=== PATIENT | male | born 1935 | race Caucasian/White ===

== ENCOUNTER 2017-08-25 19:08 | Emergency (ER) | payer OTHER ==
[~2017-08-25] VITALS: Ht 165.1 cm; Wt 72.9 kg
[~2017-08-25 19:08] MED LIST: AMLO10TA2 PO; ASPI-515 PO; CHOL100011 PO; CLOP75TA52 PO; LEVO100T5 PO; METO50TA82 PO; OMEP40CA6 PO; SIMV40TA3 PO
[2017-08-25] MEDS ORDERED: HYDROcodone/APAP 5/325 TABLET PO STA (20:00)
[2017-08-25] MEDS ORDERED: HYDROcodone/APAP 5/325 TABLET ONE (20:08)
[2017-08-25 20:29] VITALS: BP 168/86
== END 2017-08-25 20:31 | disposition home or self-care (01) ==
LOC: ED 20:15
DX: K08.89 Other specified disorders of teeth and supporting structures (principal); I10 Essential (primary) hypertension; Z87.891 Personal history of nicotine dependence
CPT/HCPCS: 99283

== ENCOUNTER → 2018-02-25 | Outpatient (CLI) | payer OTHER ==
[~2018-02-25] MED LIST changes: -AMLO10TA2 PO; +AMLO10TA6 PO; +REGADENOSON 0.4 MG/5 ML SYRINGE ONE
== END | disposition home or self-care (01) ==
LOC: CFH 08:12
PROVIDERS: ATTEND Internal Medicine Cardiovascular Disease
DX: Z01.810 Encounter for preprocedural cardiovascular examination (principal); I65.23 Occlusion and stenosis of bilateral carotid arteries; I25.9 Chronic ischemic heart disease, unspecified; I25.2 Old myocardial infarction; I10 Essential (primary) hypertension; Z95.1 Presence of aortocoronary bypass graft
CPT/HCPCS: 78452; 93017; 93880; A9502; J2785

== ENCOUNTER 2018-03-17 12:16 | Day surgery (SDC) | payer OTHER ==
[2018-03-14 09:22] VITALS: BP 164/84
[~2018-03-17] VITALS: Ht 162.6 cm; Wt 68.2 kg
[~2018-03-17 12:16] MED LIST changes: -AMLO10TA6 PO; +AMLO10TA8 PO; +ATOR40TA78 PO; +LEVO25TA4 PO; -REGADENOSON 0.4 MG/5 ML SYRINGE ONE
[2018-03-17] MEDS ORDERED: CLOPIDOGREL 75 MG TABLET PO ONE (12:30)
[2018-03-17] MEDS ORDERED: SODIUM CHLORIDE 0.9% 1,000 ML IV ONE (12:30)
[2018-03-17] MEDS ORDERED: ASPIRIN 325 MG TABLET EC PO ONE (12:30)
[2018-03-17] MEDS ORDERED: BIVALIRUDIN 250 MG ONE (14:08)
[2018-03-17] MEDS ORDERED: HEPARIN 1,000 UNITS/ML, 10ML ONE (14:08)
[2018-03-17] MEDS ORDERED: FENTANYL PF 100 MCG/2ML ONE (14:08)
[2018-03-17] MEDS ORDERED: MIDAZOLAM 1 MG/ML, 5ML ONE (14:08)
[2018-03-17] MEDS ORDERED: VERAPAMIL 2.5 MG/ML, 2ML ONE (14:08)
[2018-03-17] MEDS ORDERED: LIDOCAINE 2%, 20ML ONE (14:08)
[2018-03-17] MEDS ORDERED: SODIUM CHLORIDE 0.9% 1,000 ML IV SCH (16:44)
== END 2018-03-17 17:32 | disposition home or self-care (01) ==
LOC: CACL 12:16
PROVIDERS: ATTEND Internal Medicine Cardiovascular Disease
DX: I25.10 Atherosclerotic heart disease of native coronary artery without angina pectoris (principal); I65.29 Occlusion and stenosis of unspecified carotid artery; E78.2 Mixed hyperlipidemia; I10 Essential (primary) hypertension; I70.218 Atherosclerosis of native arteries of extremities with intermittent claudication, other extremity; F17.211 Nicotine dependence, cigarettes, in remission; Z88.0 Allergy status to penicillin; Z79.82 Long term (current) use of aspirin
CPT/HCPCS: 93459; 99156; 99157; C1760; C1769; C1894; J2250; J3010; J3490; Q9967; J0583; J1644

== ENCOUNTER 2018-09-04 06:01 | Inpatient (IN) | payer MEDICARE ==
[~2018-09-04] VITALS: Ht 162.6 cm; Wt 70.1 kg
[2018-09-07 06:54] VITALS: BP 139/67
== END 2018-09-07 12:44 | disposition home or self-care (01) | DRG 291 ==
LOC: ED 08:05 → EDIP 10:08 → 4EST 16:23 → DCLOUNGE 09-07 12:30
PROVIDERS: ADMIT Internal Medicine Infectious Disease; ATTEND Internal Medicine Infectious Disease
DX: I11.0 Hypertensive heart disease with heart failure (principal); J96.01 Acute respiratory failure with hypoxia; E87.0 Hyperosmolality and hypernatremia; I25.10 Atherosclerotic heart disease of native coronary artery without angina pectoris; E87.6 Hypokalemia; E78.5 Hyperlipidemia, unspecified; E03.9 Hypothyroidism, unspecified; E78.00 Pure hypercholesterolemia, unspecified; I44.7 Left bundle-branch block, unspecified; I73.9 Peripheral vascular disease, unspecified; J98.01 Acute bronchospasm; Z87.891 Personal history of nicotine dependence; Z88.0 Allergy status to penicillin; Z95.1 Presence of aortocoronary bypass graft; Z95.5 Presence of coronary angioplasty implant and graft; Z95.820 Peripheral vascular angioplasty status with implants and grafts; I50.23 Acute on chronic systolic (congestive) heart failure
CPT/HCPCS: 36415; 71045; 80048; 80061; 82040; 83735; 83880; 84100; 84439; 84443; 84484; 85025; 85610; 85730; 93005; 93306; 94640; 96374; 96375; G0378; J1650; J1940; J3475; J7613; J7620; J2930; J3480

== ENCOUNTER → 2018-12-30 | Outpatient (CLI) | payer MEDICARE ==
[~2018-12-30] MED LIST changes: +CARV6.2512 PO; +FURO40TA6 PO; +LISI-167 PO; +LISI-170 PO; +OMEP40CA42 PO; -OMEP40CA6 PO; +POTA10CA PO; +POTA20TA6 PO; +SPIR25TA5 PO
== END | disposition home or self-care (01) ==
LOC: CFH 09:34
PROVIDERS: ATTEND Internal Medicine Cardiovascular Disease
DX: I35.8 Other nonrheumatic aortic valve disorders (principal); I25.5 Ischemic cardiomyopathy; I10 Essential (primary) hypertension; Z87.891 Personal history of nicotine dependence
CPT/HCPCS: 93308; 93321; 93325

== ENCOUNTER → 2020-04-22 | Outpatient (CLI) | payer MEDICARE ==
[~2020-04-22] MED LIST changes: +AMLO-211 PO; -AMLO10TA8 PO; -ASPI-515 PO; +ASPI-963 PO; +SIMV40TA20 PO; -SIMV40TA3 PO
== END | disposition home or self-care (01) ==
LOC: CFH 14:46
PROVIDERS: ATTEND Internal Medicine Cardiovascular Disease
DX: I08.0 Rheumatic disorders of both mitral and aortic valves (principal); I11.9 Hypertensive heart disease without heart failure; I25.10 Atherosclerotic heart disease of native coronary artery without angina pectoris
CPT/HCPCS: 93306

== ENCOUNTER 2020-07-24 19:02 | Inpatient (IN) | payer MEDICARE ==
[~2020-07-24] VITALS: Ht 167.6 cm; Wt 64.6 kg
[~2020-07-24 19:02] MED LIST changes: -OMEP40CA42 PO; +OMEP40CA8 PO
--- NOTE | 2020-07-24 19:05 | NUR ---
JUVENAL from home for stroke-like symptoms. Per family, patient was at the dining table and slumped over at the table. Last seen normal at approx 1815. Upon EMS arrival, patient was AAOx4 but en route became non-verbal. EMS reports slurred speech, left side facial droop, and right side weakness. No hx of CVA. Patient alert on arrival. Patient to CT.
--- NOTE | 2020-07-24 19:05 | NUR ---
BS per EMS 118
[2020-07-24 19:14] LABS: BASOPHILS % (AUTO) 1 % (0-1); EOSINOPHILS % (AUTO) 5 % (1-7); LYMPHOCYTES % (AUTO) 24 % (22-44); MEAN CORPUSCULAR HEMOGLOBIN 30.6 pg (27.5-34.5); MEAN CORPUSCULAR HGB CONC 33.9 g/dL (33.2-36.2); MEAN PLATELET VOLUME 9.2 fL (7.4-10.4); MONOCYTES % (AUTO) 7 % (2-9); NEUTROPHILS % (AUTO) 63 % (42-75); PLATELET COUNT 203 x10^3/uL (130-400); RED BLOOD COUNT 4.05 x10^6/uL (4.38-5.82); RED CELL DISTRIBUTION WIDTH 14.6 % (9.4-14.8)
--- NOTE | 2020-07-24 19:22 | NUR ---
Code Neuro called @ 1850 Called Neurology @ 1902 Neurology called back @ [address] Pappas.
[2020-07-24] MEDS ORDERED: OMNIPAQUE 350 MG/ML, 100ML BOTTLE ONE (19:23)
[2020-07-24 19:29] LABS: INTERNATIONAL NORMALIZED RATIO 1.09 (0.93-1.1); PROTHROMBIN TIME 11.6 Seconds (9.6-11.5)
--- NOTE | 2020-07-24 19:30 | NUR ---
Patient's symptoms improving. AAOx4, CS 15. No facial droop noted. Speech improved. Mild right low ext weakness. Family at bedside.
[2020-07-24 19:35] LABS: PARTIAL THROMBOPLASTIN TIME < 23 Seconds (25-31)
[2020-07-24] MEDS ORDERED: SODIUM CHLORIDE 0.9%, 500ML IVBOLUS ONE (20:00)
[2020-07-24 20:56] VITALS: BP_SYST 122; BP_SYST 90; BP_DIAS 52; BP_DIAS 67
[2020-07-24] MEDS ORDERED: ATORVASTATIN 40 MG TABLET PO SCH (21:00)
[2020-07-24] MEDS ORDERED: SENNA/DOCUSATE TABLET PO PRN (21:00)
[2020-07-24] MEDS ORDERED: SODIUM CHLORIDE 0.9% 1,000 ML IV SCH (21:00)
[2020-07-24] MEDS ORDERED: ACETAMINOPHEN 650 MG/20.3 ML UDC PO PRN (21:00)
[2020-07-24] MEDS ORDERED: POLYETHYLENE GLYCOL 17 GM PACKET PO PRN (21:00)
[2020-07-24] MEDS ORDERED: BISACODYL 10 MG SUPP PR PRN (21:00)
[2020-07-24 21:51] VITALS: BP_SYST 129; BP_SYST 94; BP_DIAS 58; BP_DIAS 69
[2020-07-24] MEDS: CHOLECALCIFEROL 1,000 UNIT TABLET PO SCH (22:24)
[2020-07-24] MEDS ORDERED: ASPIRIN 325 MG TABLET PO ONE (22:30)
[2020-07-25] VITALS (11 sets, daily range): BP systolic 88–186; BP diastolic 52–79
[2020-07-25] MEDS: ONDANSETRON 4 MG TABLET PO PRN ×3 (00:16→17:51)
[2020-07-25] MEDS ORDERED: PROMETHAZINE 25 MG/ML, 1ML IM ONE (01:00)
[2020-07-25] MEDS ORDERED: MAALOX/HYOSCYAMINE/LIDOCAINE 45 ML BTL PO ONE (01:00)
[2020-07-25] MEDS ORDERED: MORPHINE SULFATE 4 MG/ML, 1ML IVPush PRN (05:00)
[2020-07-25 05:12] LABS: BASOPHILS % (AUTO) 1 % (0-1); EOSINOPHILS % (AUTO) 2 % (1-7); LYMPHOCYTES % (AUTO) 13 % (22-44); MEAN CORPUSCULAR HEMOGLOBIN 30.5 pg (27.5-34.5); MEAN CORPUSCULAR HGB CONC 34.1 g/dL (33.2-36.2); MEAN PLATELET VOLUME 8.8 fL (7.4-10.4); MONOCYTES % (AUTO) 7 % (2-9); NEUTROPHILS % (AUTO) 78 % (42-75); PLATELET COUNT 211 x10^3/uL (130-400); RED BLOOD COUNT 4.09 x10^6/uL (4.38-5.82); RED CELL DISTRIBUTION WIDTH 14.4 % (9.4-14.8)
[2020-07-25 05:22] LABS: TROPONIN I 0.332 ng/mL (0.000-0.045)
[2020-07-25 05:29] LABS: ALBUMIN 3.2 g/dL (3.4-5.0); ANION GAP 5 mmol/L (5-15); CALCIUM 8.2 mg/dL (8.5-10.1); CHLORIDE 107 mmol/L (98-107)
[2020-07-25 05:34] LABS: ALANINE AMINOTRANSFERASE 23 U/L (12-78); ALKALINE PHOSPHATASE 121 U/L (45-117); BILIRUBIN,TOTAL 0.2 mg/dL (0.2-1.0); CHOL/HDL RATIO 2.1; CHOLESTEROL, TOTAL 120 mg/dL (140-239); CREATININE 1.45 mg/dL (0.7-1.3); HDL CHOL % 48 % (26-37); HDL CHOLESTEROL (DIRECT) 58 mg/dL (40-60); LDL CHOLESTEROL,CALCULATED 46 mg/dL (54-169); LDL/HDL RATIO 0.8 (0.5-3.0); TOTAL PROTEIN 6.1 g/dL (6.4-8.2); TRIGLYCERIDES 79 mg/dL (50-200); VLDL CHOLESTEROL 16 mg/dL (0-25)
[2020-07-25] MEDS ORDERED: MORPHINE SULFATE 4 MG/ML, 1ML IVPush ONE (06:30)
[2020-07-25] MEDS: CARVEDILOL 6.25 MG TABLET PO SCH ×2 (06:33→17:49)
[2020-07-25] MEDS: LEVOTHYROXINE 25 MCG TABLET PO SCH (06:33)
[2020-07-25] MEDS ORDERED: HEPARIN 5,000 UNITS/ML, 1ML IV ONE (07:00)
[2020-07-25] MEDS ORDERED: HEPARIN 5,000 UNITS/ML, 1ML IV PRN (07:00)
[2020-07-25] MEDS ORDERED: HEPARIN 25,000 UNITS/250ML PMX 250 ML IV PRN (07:00)
[2020-07-25] MEDS ORDERED: ASPIRIN 81 MG TABLET EC PO SCH (09:00)
[2020-07-25] MEDS: OMEPRAZOLE 20 MG CAPSULE.DR PO SCH (09:10)
[2020-07-25] MEDS: ASPIRIN 325 MG TABLET PO SCH (09:10)
[2020-07-25] MEDS: CHOLECALCIFEROL 1,000 UNIT TABLET PO SCH ×2 (09:10→20:43)
[2020-07-25] MEDS: CLOPIDOGREL 75 MG TABLET PO SCH (09:11)
[2020-07-25] MEDS: FUROSEMIDE 20 MG TABLET PO SCH ×2 (09:11→17:49)
[2020-07-25] MEDS: POTASSIUM CHLORIDE 10 MEQ TABLET.ER PO SCH (09:12)
[2020-07-25 11:43] LABS: TROPONIN I 0.458 ng/mL (0.000-0.045)
[2020-07-25] MEDS ORDERED: GADOTERATE 7.5 MMOL/15ML SYR ONE (12:35)
[2020-07-25 16:25] LABS: TROPONIN I 0.302 ng/mL (0.000-0.045)
[2020-07-25] MEDS: ATORVASTATIN 80 MG TABLET PO SCH (20:43)
[2020-07-26 01:27] VITALS: BP 113/66
[2020-07-26 05:27] LABS: TROPONIN I 0.115 ng/mL (0.000-0.045)
[2020-07-26] MEDS: CARVEDILOL 6.25 MG TABLET PO SCH ×2 (05:49→18:04)
[2020-07-26] MEDS: LEVOTHYROXINE 25 MCG TABLET PO SCH (05:49)
[2020-07-26 07:00] VITALS: BP 105/57
[2020-07-26 09:23] VITALS: BP 112/48
[2020-07-26 09:24] LABS: BASOPHILS % (AUTO) 1 % (0-1); EOSINOPHILS % (AUTO) 2 % (1-7); LYMPHOCYTES % (AUTO) 16 % (22-44); MEAN PLATELET VOLUME 8.8 fL (7.4-10.4); MONOCYTES % (AUTO) 7 % (2-9); NEUTROPHILS % (AUTO) 74 % (42-75); PLATELET COUNT 181 x10^3/uL (130-400); RED BLOOD COUNT 3.62 x10^6/uL (4.38-5.82); RED CELL DISTRIBUTION WIDTH 14.3 % (9.4-14.8)
[2020-07-26] MEDS: POTASSIUM CHLORIDE 10 MEQ TABLET.ER PO SCH (09:28)
[2020-07-26] MEDS: FUROSEMIDE 20 MG TABLET PO SCH ×2 (09:29→18:04)
[2020-07-26] MEDS: CLOPIDOGREL 75 MG TABLET PO SCH (09:29)
[2020-07-26] MEDS: ZONISAMIDE 50 MG CAPSULE PO SCH (09:29)
[2020-07-26] MEDS: OMEPRAZOLE 20 MG CAPSULE.DR PO SCH (09:29)
[2020-07-26] MEDS: CHOLECALCIFEROL 1,000 UNIT TABLET PO SCH ×2 (09:29→21:05)
[2020-07-26] MEDS: ASPIRIN 325 MG TABLET PO SCH (09:29)
[2020-07-26 09:31] LABS: ANION GAP 9 mmol/L (5-15); CALCIUM 8.4 mg/dL (8.5-10.1); CHLORIDE 109 mmol/L (98-107); CREATININE 1.36 mg/dL (0.7-1.3)
[2020-07-26 14:04] VITALS: BP 153/62
[2020-07-26 18:03] VITALS: BP 150/76
[2020-07-26 20:57] VITALS: BP 153/69
[2020-07-26] MEDS: ATORVASTATIN 80 MG TABLET PO SCH (21:05)
[2020-07-27 02:27] VITALS: BP 113/61
[2020-07-27] MEDS: LEVOTHYROXINE 25 MCG TABLET PO SCH (05:10)
[2020-07-27] MEDS: CARVEDILOL 6.25 MG TABLET PO SCH (05:10)
[2020-07-27] MEDS ORDERED: REGADENOSON 0.4 MG/5 ML SYRINGE ONE (07:33)
[2020-07-27 07:54] VITALS: BP 136/68
[2020-07-27] MEDS: POTASSIUM CHLORIDE 10 MEQ TABLET.ER PO SCH (09:50)
[2020-07-27] MEDS: ASPIRIN 325 MG TABLET PO SCH (09:50)
[2020-07-27] MEDS: CHOLECALCIFEROL 1,000 UNIT TABLET PO SCH (09:51)
[2020-07-27] MEDS: OMEPRAZOLE 20 MG CAPSULE.DR PO SCH (09:51)
[2020-07-27] MEDS: CLOPIDOGREL 75 MG TABLET PO SCH (09:51)
[2020-07-27] MEDS: ZONISAMIDE 50 MG CAPSULE PO SCH (09:51)
[2020-07-27] MEDS: FUROSEMIDE 20 MG TABLET PO SCH (09:52)
[2020-07-27 13:18] VITALS: BP 125/62
[2020-07-27] MEDS ORDERED: ZONI50CA10 PO (15:12)
== END 2020-07-27 17:41 | disposition home or self-care (01) | DRG 100 ==
LOC: ED 19:35 → EDIP 19:45 → ED 20:16 → 4WST 20:41 → 5SO 07-25 07:43
PROVIDERS: ADMIT Family Medicine; ATTEND Internal Medicine
DX: G40.209 Localization-related (focal) (partial) symptomatic epilepsy and epileptic syndromes with complex partial seizures, not intractable, without status epilepticus (principal); I21.4 Non-ST elevation (NSTEMI) myocardial infarction; I82.B12 Acute embolism and thrombosis of left subclavian vein; I47.2 Ventricular tachycardia; E03.9 Hypothyroidism, unspecified; E78.5 Hyperlipidemia, unspecified; I65.01 Occlusion and stenosis of right vertebral artery; E83.41 Hypermagnesemia; I12.9 Hypertensive chronic kidney disease with stage 1 through stage 4 chronic kidney disease, or unspecified chronic kidney disease; I25.10 Atherosclerotic heart disease of native coronary artery without angina pectoris; I25.5 Ischemic cardiomyopathy; I25.2 Old myocardial infarction; I65.23 Occlusion and stenosis of bilateral carotid arteries; I70.8 Atherosclerosis of other arteries; I73.9 Peripheral vascular disease, unspecified; K22.2 Esophageal obstruction; K22.8 Other specified diseases of esophagus; N18.9 Chronic kidney disease, unspecified; Z66 Do not resuscitate; Z79.02 Long term (current) use of antithrombotics/antiplatelets; Z79.82 Long term (current) use of aspirin; Z80.9 Family history of malignant neoplasm, unspecified; Z82.49 Family history of ischemic heart disease and other diseases of the circulatory system; Z87.891 Personal history of nicotine dependence; Z95.1 Presence of aortocoronary bypass graft; Z86.73 Personal history of transient ischemic attack (TIA), and cerebral infarction without residual deficits; Z88.0 Allergy status to penicillin
CPT/HCPCS: 36415; 70450; 70496; 70498; 70553; 74220; 78452; 80047; 80048; 80053; 80061; 83735; 84484; 85025; 85520; 85610; 85730; 93005; 93017; 93306; 93880; 95819; 99291; G0378; J1644; J2550; J2785; Q0162; Q9967; A9502; A9575; J2270; J7030; J7040